=== PATIENT | male | born 1935 | race Caucasian/White ===

== ENCOUNTER 2016-06-23 10:07 | Inpatient (IN) | payer OTHER, MEDICAID ==
[~2016-06-23] VITALS: Ht 167.6 cm; Wt 60.8 kg
[~2016-06-23 10:07] MED LIST: ACET-2619 PO; CLOP75TA PO; FLUV100C PO; LORA10OD44 PO; LOVA10TA27 PO; MAGN400S60 PO; MEMA5TAB PO; MULT-1184 PO; PRIM50TA13 PO; ROB1 PO
[2016-06-23 10:17] VITALS: BP 126/74
--- NOTE | 2016-06-23 10:18 | NUR ---
PT PLACED TO BED 6 BY EMS
--- NOTE | 2016-06-23 10:20 | NUR ---
81/M jesus from [facility] for evaluation of abdominal pain accompanied with N/V/D since last night. Pt arrived to ED wrenching and vomiting. Emesis appears brown, liquid. Pt c/o pain to left side of abdomen, abdomen distended and firm on that side. Pt also c/o diarrhea throughout the night. Patient is AOX4, peruvian speaking. Pt appears very restless and moaning. Pt assisted into a gown, placed on surveillance monitor, pulse oximetry and blood pressure monitoring. VSS.
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
[2016-06-23] MEDS ORDERED: CALC-1214 PO (10:41)
[2016-06-23] MEDS ORDERED: MAGN400S60 PO (10:41)
[2016-06-23] MEDS ORDERED: CRAN450C PO (10:41)
[2016-06-23] MEDS ORDERED: DOCU100C5 PO (10:41)
[2016-06-23] MEDS ORDERED: MORPHINE SULFATE 4 MG/ML SYR IVP ONE (11:00)
[2016-06-23] MEDS ORDERED: NACL 0.9% 1,000 ML IV ONE ×3 (11:00→14:55)
[2016-06-23] MEDS ORDERED: ONDANSETRON 4 MG/2 ML VIAL IVP ONE ×2 (11:00→11:40)
--- NOTE | 2016-06-23 11:01 | NUR ---
Pt taken to restroom via w/c. Pt cleaned and placed a new brief. Daughter accompanied. Pt was transferred back to bed 6 via w/c. Pt tolerated well.
[2016-06-23 11:16] LABS: BASOPHILS % (AUTO) 0.4 % (0.0-2.0); EOSINOPHILS # (AUTO) 0.1 K/uL (0-0.4); EOSINOPHILS % (AUTO) 1.4 % (0.0-4.0); HEMATOCRIT 39.4 % (36-52); HEMOGLOBIN 13.1 g/dL (12.0-18.0); LYMPHOCYTES # (AUTO) 0.3 K/uL (2.0-11.5); LYMPHOCYTES % (AUTO) 3.6 % (20.5-51.1); MEAN CORPUSCULAR HEMOGLOBIN 31 pg (27-31); MEAN CORPUSCULAR HGB CONC 33 g/dL (33-37); MEAN CORPUSCULAR VOLUME 93 fL (80-94); MONOCYTES # (AUTO) 0.7 K/uL (0.8-1.0); MONOCYTES % (AUTO) 7.6 % (1.7-9.3); NEUTROPHILS # (AUTO) 8.3 K/uL (1.8-7.7); PLATELET COUNT (AUTO) 410 K/uL (140-450); RED BLOOD CELL COUNT(AUTO) 4.22 MIL/uL (4.20-6.10); RED CELL DISTRIBUTION WIDTH 12.8 % (11.6-13.7)
[2016-06-23 11:21] LABS: ANION GAP 10.1 (8-16); CALCIUM 8.6 mg/dL (8.5-10.1); CARBON DIOXIDE 29.3 mmol/L (21-32); CHLORIDE 106 mmol/L (98-107); CREATININE 1.2 mg/dL (0.6-1.3); GLUCOSE 122 mg/dL (74-106); POTASSIUM 4.4 mmol/L (3.5-5.1); SODIUM SERUM 141 mmol/L (136-145); UREA NITROGEN, BLOOD 31 mg/dL (7-18)
[2016-06-23 11:27] LABS: ALANINE AMINOTRANSFERASE 48 U/L (12-78); ALBUMIN 3.5 g/dL (3.4-5.0); ALKALINE PHOSPHATASE 123 U/L (46-116); AMYLASE 121 U/L (25-115); ASPARTATE AMINOTRANSFERASE 45 U/L (15-37); LIPASE 104 U/L (73-393); TOTAL BILIRUBIN 0.4 mg/dL (0.0-1.0); TOTAL PROTEIN, SERUM 7.2 g/dL (6.4-8.2); WHITE BLOOD COUNT (AUTO) 9.4 K/uL (4.8-10.8)
--- NOTE | 2016-06-23 11:52 | NUR ---
Daughter explains the restlessness and grunting patient has is normal for him.
--- NOTE | 2016-06-23 12:06 | NUR ---
Patient appears to be resting comfortably in bed. Vital Signs within normal limits. Respirations even and unlabored.
--- NOTE | 2016-06-23 12:38 | NUR ---
Patient provided with a warm blanket. Pt placed in position of comfort. VSS.
--- NOTE | 2016-06-23 13:23 | NUR ---
Patient returned from CT via [facility].
--- NOTE | 2016-06-23 13:33 | NUR ---
Dr. Fernández made aware of patient having nausea and vomiting after returning from CT.
[2016-06-23] MEDS ORDERED: METOCLOPRAMIDE 10 MG/2 ML INJ VIAL IVP ONE (13:35)
[2016-06-23] MEDS ORDERED: metroNIDAZOLE 500 MG/NS PREMIX 100 ML IV ONE (14:10)
[2016-06-23] MEDS ORDERED: cefTRIAXone 1,000 MG VIAL ONE (14:22)
--- NOTE | 2016-06-23 15:18 | NUR ---
# 16 FR Sotelo catheter with 10 ml utilizing sterile technique. Immediate return of 300 ml of clear yellow urine noted. Bedside drainage bag placed below level of bladder. Urine sample collected and sent to lab. Pt tolerated procedure well.
[2016-06-23 15:22] LABS: APPEARANCE,URINE CLEAR (CLEAR); BILIRUBIN,URINE NEGATIVE (NEGATIVE); BLOOD, URINE 2+ (NEGATIVE); COLOR,URINE YELLOW (YELLOW); LEUKOCYTE ESTERASE ,URINE NEGATIVE (NEGATIVE); NITRITE, URINE NEGATIVE (NEGATIVE); PROTEIN,URINE TRACE (NEGATIVE); UGLUCOSE NEGATIVE (NEGATIVE); UROBILINOGEN,URINE 0.2 EU/dL (0.2 - 1)
[2016-06-23 15:47] LABS: RBC,URINE 11-20 (MOD) /HPF (0-5)
[2016-06-23 15:48] LABS: BACTERIA,URINE RARE /HPF (None Seen); SQUAMOUS EPITHELIAL CELL,UR None Seen /LPF (0-3 (FEW)); WBC,URINE 0-5 (RARE) /HPF (0-5)
--- NOTE | 2016-06-23 15:53 | NUR ---
Patient will be admitted to care of Dr. Guevara. Admited to M/S. Will go to room 106-B. Belongings list completed. Report to Mikal GREEN.
--- NOTE | 2016-06-23 16:15 | NUR ---
ADMITTED FROM ER VIA GURNEY, ACCOMPANIED BY PT. DAUGHTER -HUMPHREY. AWAKE, ALERT, AND ORIENTED X3. SPEECH CLEAR. NO C/O PAIN. NO SOB, NOTED. SKIN DISCOLORATION RIGHT FOREARM, NOTED. KEEP COMFORTABLE ON BED. ADMISSION ASSESSMENT DONE WITH ASSISTANCE FROM PT. DAUGHTER -HUMPHREY. EXPLAINED TO PT. AND PT. DAUGHTER -HUMPHREY ABOUT DIAGNOSIS, PLAN OF CARE, PAIN MANAGEMENT TEACHING, USE OF CALL LIGHT/BED/TV/BATHROOM. VERBALIZED UNDERSTANDING. FALL PRECAUTION APPLIED. CALL LIGHT WITHIN REACH.
[2016-06-23 16:30] VITALS: BP 112/59
--- NOTE | 2016-06-23 17:02 | NUR ---
PAGED BRIANNE MOSQUEDA FOR ADDITIONAL ADMISSION ORDERS. LEFT CALL BACK NUMBER.
--- NOTE | 2016-06-23 17:09 | NUR ---
Patient's Plan of Care was discussed and reviewed with TELECOMMUNICATIONS MANAGER: LIAM BLANCO
--- NOTE | 2016-06-23 17:42 | NUR ---
DR. PATEL BRIANNE CALLED BACK, ASKED FOR ADDITIONAL ADMISSION ORDERS. GOT T.O. READ BACK AND VERIFIED.
[2016-06-23] MEDS: DEXT 5% / NACL 0.45% 1,000 ML IV SCH (18:10)
[2016-06-23] MEDS ORDERED: ACETAMINOPHEN 325 MG TAB PO SCH (18:55)
[2016-06-23] MEDS ORDERED: MAGNESIUM HYDROXIDE 2400 MG/30 ML UDC PO PRN (18:55)
[2016-06-23] MEDS ORDERED: HYDROcodone/APAP 5/325 MG 1 TAB TAB PO PRN (19:00)
[2016-06-23] MEDS ORDERED: ONDANSETRON 4 MG/2 ML VIAL IVP PRN (19:00)
[2016-06-23] MEDS ORDERED: ACETAMINOPHEN 325 MG TAB PO PRN (19:00)
--- NOTE | 2016-06-23 19:10 | NUR ---
RECEIVED REPORT FROM NORMA WHEELER AT BEDSIDE. PT AAOX3. CONFUSED AT TIMES. PT IS MED SURGE. PT IN BEDREST. PT HAS IV TO LEFT AC G 20; ASYMPTOMATIC, PATENT AND INTACT INFUSING FLUIDS WELL. PT HAS A BOWER CATHETER IN PLACE. PT HAS A BRUISE ON RIGHT FOREARM. EXPLAINED PLAN OF CARE TO PT AND ORIENTED HIM TO ROOM AND SURROUNDINGS. REINFORCEMENT NEEDED. SAFETY MEASURES IN PLACE, BED ALARM ON. WILL CONTINUE TO MONITOR PT.
--- NOTE | 2016-06-23 19:55 | NUR ---
THERE IS AN ORDER TO KEEP PT NPO, BUT THERE ARE SCHEDULED PO MEDICATIONS FOR PT. CALLED DR. AMANDA DECKER. TO CLARIFY IF PT CAN TAKE PO MEDICATIONS, DR PATEL STATED THAT IT IS OKAY TO GIVE PO MEDS. WILL FOLLOW UP ON ORDERES.
[2016-06-23] MEDS: CALCIUM CARB/VIT-D 500 MG/200 IU 1 TAB PO SCH (20:57)
[2016-06-23] MEDS: PRIMIDONE 50 MG TAB PO SCH (20:57)
[2016-06-23] MEDS: GLYCOPYRROLATE 1 MG TAB PO SCH (20:57)
[2016-06-23] MEDS: metroNIDAZOLE 500 MG/NS PREMIX 100 ML IV SCH (20:58)
--- NOTE | 2016-06-23 21:08 | NUR ---
PT TOLERATED 2100 MEDS WELL. PT CLEANED AND TURNED. BED ALARM ON, WILL CONTINUE TO MONITOR PT.
--- NOTE | 2016-06-23 23:40 | NUR ---
PT TURNED WITH HELP OF COMMERCIAL BAKING TEACHER. SCDS ON. NO SIGNS OF DISTRESS OR DISCOMFORT NOTED, WILL CONTINUE TO MONITOR PT.
[2016-06-24] VITALS: BP 132/75
--- NOTE | 2016-06-24 01:40 | NUR ---
PT TURNED/REPOSITIONED, CSDS ON. NO SIGNS OF DISTRESS/DISCOMFORT NOTED. BED ALARM ON, WILL CONTINUE TO MONITOR PT.
[2016-06-24] MEDS: DEXT 5% / NACL 0.45% 1,000 ML IV SCH ×3 (03:45→23:45)
--- NOTE | 2016-06-24 04:29 | NUR ---
PT SLEEPING AT THIS TIME, WOKE HIM UP TO REPOSITIONED/TURN. PT COMFORTABLY IN BED, WILL CONTINUE TO MONITOR PT.
[2016-06-24] MEDS: metroNIDAZOLE 500 MG/NS PREMIX 100 ML IV SCH ×3 (04:38→20:22)
--- NOTE | 2016-06-24 06:33 | NUR ---
PT SLEEPING, NO SIGNS OF DISTRESS NOTED. WILL CONTINUE TO MONITOR PT. PT HAS BEEN TURNED/REPOSITIONED THROUGH OUT THE SHIFT. WILL CONTINUE TO MONITOR. Addendum: 06/24/16 at 0634 by Nessa Shirley RN PT REPOSITIONED Q2H.
[2016-06-24 06:43] LABS: ANION GAP 8.8 (8-16); CALCIUM 7.4 mg/dL (8.5-10.1); CARBON DIOXIDE 24.9 mmol/L (21-32); CHLORIDE 110 mmol/L (98-107); GLUCOSE 85 mg/dL (74-106); POTASSIUM 3.7 mmol/L (3.5-5.1); SODIUM SERUM 140 mmol/L (136-145); UREA NITROGEN, BLOOD 19 mg/dL (7-18)
--- NOTE | 2016-06-24 07:30 | NUR ---
RECEIVED ON BED AAOX3, WITH PERIODS OF CONFUSION. NO SOB NOTED. NO C/O PAIN AT THIS TIME. IV TO LEFT AC PATENT AND INTACT. CHEST CLEAR. ABDOMEN SOFT, BOWEL SOUNDS PRESENT. WITH BOWER DRAINING CLEAR YELLOW URINE IN MODERATE AMOUNTS. GENERALIZED WEAKNESS NOTED. SCD'S IN PACE. WILL HELP REPOSITION PT EVERY 2 HRS. NPO MAINTAINED. INSTRUCTED PT TO CALL FOR ASSISTANCE, CALL LIGHT WITHIN REACH, PT VERBALIZED PARTIAL UNDERSTANDING.
[2016-06-24 07:54] LABS: HEMATOCRIT 31.7 % (36-52); HEMOGLOBIN 10.6 g/dL (12.0-18.0); MEAN CORPUSCULAR VOLUME 96 fL (80-94); RED BLOOD CELL COUNT(AUTO) 3.32 MIL/uL (4.20-6.10); WHITE BLOOD COUNT (AUTO) 5.7 K/uL (4.8-10.8)
[2016-06-24 07:55] LABS: MEAN CORPUSCULAR HEMOGLOBIN 32 pg (27-31); MEAN CORPUSCULAR HGB CONC 34 g/dL (33-37); PLATELET COUNT (AUTO) 272 K/uL (140-450); RED CELL DISTRIBUTION WIDTH 12.9 % (11.6-13.7)
--- NOTE | 2016-06-24 07:56 | NUR ---
ENDORSED PT IN STABLE CONDITION TO NORMA Norman FOR CONTINUITY OF CARE.
[2016-06-24 08:00] VITALS: BP 96/60
--- NOTE | 2016-06-24 08:13 | NUR ---
PATIENT HAS BEEN SCREENED AND CATEGORIZED MODERATE NUTRITION RISK. PATIENT WILL BE SEEN WITHIN 3-5 DAYS OF ADMISSION. 06/26/16-06/28/[address]
[2016-06-24] MEDS: CLOPIDOGREL 75 MG TAB PO SCH (09:00)
[2016-06-24] MEDS: MULTIVITAMIN/MINERALS 1 TAB PO SCH (09:00)
[2016-06-24] MEDS: GLYCOPYRROLATE 1 MG TAB PO SCH ×2 (09:00→20:30)
[2016-06-24] MEDS ORDERED: NON-FORMULARY ITEM (Cranberry Fruit Concentrate (Cranberry) 450 MG) PO SCH (09:00)
[2016-06-24] MEDS: DOCUSATE SODIUM 100 MG GELCAP PO SCH (09:00)
[2016-06-24] MEDS: MEMANTINE 10 MG TAB PO SCH (09:00)
--- NOTE | 2016-06-24 10:00 | NUR ---
PT RESTING. NO SOB NOTED. NO SIGNS OF PAIN. REPOSITIONED PT.
[2016-06-24 10:40] LABS: BASOPHILS % (AUTO) 0.5 % (0.0-2.0); EOSINOPHILS % (AUTO) 1.4 % (0.0-4.0); LYMPHOCYTES % (AUTO) 18.7 % (20.5-51.1); MONOCYTES % (AUTO) 12.9 % (1.7-9.3); NEUTROPHILS # (AUTO) 3.8 K/uL (1.8-7.7); NEUTROPHILS % (AUTO) 66.5 % (42.2-75.2)
[2016-06-24 10:41] LABS: EOSINOPHILS # (AUTO) 0.1 K/uL (0-0.4); LYMPHOCYTES # (AUTO) 1.1 K/uL (2.0-11.5); MONOCYTES # (AUTO) 0.7 K/uL (0.8-1.0)
--- NOTE | 2016-06-24 15:00 | NUR ---
PT RESTING. NO SOB NOTED. NO COMPLAINTS MADE. DAUGHTER AT THE BEDSIDE.
[2016-06-24 16:00] VITALS: BP 113/60
--- NOTE | 2016-06-24 18:00 | NUR ---
PT AWAKE. NO COMPLAINTS MADE. NPO MAINTAINED. PT'S DAUGHTER LEFT HER PHONE NUMBER FOR DR. AMANDA DECKER TO GIVE HER A CALL REGARDING PT'S CONDITION.
--- NOTE | 2016-06-24 19:05 | NUR ---
RECEIVED REPORT FROM NORMA Norman AT BEDSIDE. PT AAOX3. CONFUSED AT TIMES. PT IS MED SURGE. PT IN BEDREST. PT HAS IV TO LEFT AC G 20; ASYMPTOMATIC, PATENT AND INTACT INFUSING FLUIDS WELL. PT HAS A BOWER CATHETER IN PLACE. PT HAS A BRUISE ON RIGHT FOREARM. PT STABLE AT THIS TIME, NO SIGNS OF DISTRESS/DISCOMFORT. EXPLAINED PLAN OF CARE TO PT AND ORIENTED HIM TO ROOM AND SURROUNDINGS. REINFORCEMENT NEEDED. SAFETY MEASURES IN PLACE, BED ALARM ON. WILL CONTINUE TO MONITOR PT.
--- NOTE | 2016-06-24 19:14 | NUR ---
PAGED BRIANNE MOSQUEDA TO KNOW WHEN HE IS COMING TO SEE PT TODAY. AWAITING FOR CALL BACK. WILL ENDORSE TO NEXT SHIFT NURSE FOR FOR CONTINUITY OF CARE.
--- NOTE | 2016-06-24 20:28 | NUR ---
2100 ANTIBIOTIC GIVEN, HELD PO MEDS DUE TO PT BEEN NPO. WILL CONTINUE TO MONITOR PT.
[2016-06-24] MEDS: CALCIUM CARB/VIT-D 500 MG/200 IU 1 TAB PO SCH (20:29)
[2016-06-24] MEDS: PRIMIDONE 50 MG TAB PO SCH (20:29)
--- NOTE | 2016-06-24 21:18 | NUR ---
DR. PATEL IN TO SEE PT, WILL CONTINUE TO MONITOR PT.
--- NOTE | 2016-06-24 21:56 | NUR ---
DR. GOTTLIEB IN TO SEE PT, WILL CONTINUE TO MONITOR PT.
[2016-06-24] MEDS: LEVOFLOXACIN 500 MG/D5W PREMIX 100 ML IV SCH (21:57)
--- NOTE | 2016-06-24 22:22 | NUR ---
PT TURNED/REPOSITIONED WITH HELP OF TANYA. PT KEEPS CALLING THE CALL LIGHT AND SAYS THAT HE IS WET AND BLEEDING. PT IS DRY AND CLEAN. TANYA AT BEDSIDE. CALL LIGHT WITHIN REACH.
--- NOTE | 2016-06-24 23:31 | NUR ---
PT HAD A BOWEL MOVEMENT. PT CLEANED AND REPOSITIONED/TURNED. PT RESTING COMFORTABLE IN BED NOW. WILL CONTINUE TO MONITOR PT.
[2016-06-25] VITALS: BP 115/72
[2016-06-25] MEDS: DEXT 5% / NACL 0.45% 1,000 ML IV SCH ×2 (04:24→17:00)
--- NOTE | 2016-06-25 04:35 | NUR ---
PT TURNED/REPOSITIONED, BOWER CATHETER EMPTIED. PT STABLE, WILL CONTINUE TO MONITOR PT.
--- NOTE | 2016-06-25 06:10 | NUR ---
PT HAS BEEN TURNED/REPOSITIONED Q2H THROUGHOUT THE SHIFT. PT TOLERATED IT WELL, WILL CONTINUE TO MONITOR PT.
[2016-06-25 06:40] LABS: BASOPHILS % (AUTO) 0.9 % (0.0-2.0); EOSINOPHILS # (AUTO) 0.1 K/uL (0-0.4); EOSINOPHILS % (AUTO) 2.3 % (0.0-4.0); HEMATOCRIT 34.2 % (36-52); HEMOGLOBIN 11.3 g/dL (12.0-18.0); LYMPHOCYTES # (AUTO) 0.7 K/uL (2.0-11.5); LYMPHOCYTES % (AUTO) 13.9 % (20.5-51.1); MEAN CORPUSCULAR HEMOGLOBIN 31 pg (27-31); MEAN CORPUSCULAR HGB CONC 33 g/dL (33-37); MEAN CORPUSCULAR VOLUME 93 fL (80-94); MONOCYTES # (AUTO) 0.7 K/uL (0.8-1.0); MONOCYTES % (AUTO) 13.1 % (1.7-9.3); NEUTROPHILS # (AUTO) 3.6 K/uL (1.8-7.7); NEUTROPHILS % (AUTO) 69.8 % (42.2-75.2); PLATELET COUNT (AUTO) 316 K/uL (140-450); RED BLOOD CELL COUNT(AUTO) 3.66 MIL/uL (4.20-6.10); RED CELL DISTRIBUTION WIDTH 12.8 % (11.6-13.7); WHITE BLOOD COUNT (AUTO) 5.1 K/uL (4.8-10.8)
[2016-06-25 06:55] LABS: ANION GAP 8.3 (8-16); CALCIUM 7.5 mg/dL (8.5-10.1); CARBON DIOXIDE 27.2 mmol/L (21-32); CHLORIDE 109 mmol/L (98-107); CREATININE 0.9 mg/dL (0.6-1.3); GLUCOSE 107 mg/dL (74-106); POTASSIUM 3.5 mmol/L (3.5-5.1); SODIUM SERUM 141 mmol/L (136-145); UREA NITROGEN, BLOOD 12 mg/dL (7-18)
--- NOTE | 2016-06-25 07:39 | NUR ---
ENDORSED PT IN STABLE CONDITION ROSA ANGEL FOR CONTINUITY OF CARE.
--- NOTE | 2016-06-25 07:41 | NUR ---
RECEIVED REPORT FROM NIGHT RN. PT LAYING LEFT LATERAL IN BED. AAOX3. NO S/S OF ACUTE DISTRESS. PT DENIES PAIN. IV SITE PATENT AND INTACT. BOWER CATHETER PATENT. BRUISE TO RIGHT FOREARM NOTED. SCD'S IN PLACE. CALL LIGHT WITHIN REACH. SAFETY MEASURES ENSURED. WILL CONTINUE TO MONITOR.
[2016-06-25 07:54] VITALS: BP 114/68
--- NOTE | 2016-06-25 07:55 | NUR ---
PT REFUSED BREAKFAST TRAY BECAUSE "I WILL THROW UP" EXPLAINED THE IMPORTANCE OF TRYING TO ADVANCE DIET AND OFFERED EACH ITEM TO TRY. PT STILL REFUSED.
[2016-06-25] MEDS: DOCUSATE SODIUM 100 MG GELCAP PO SCH (09:00)
[2016-06-25] MEDS: GLYCOPYRROLATE 1 MG TAB PO SCH ×2 (09:00→20:36)
[2016-06-25] MEDS: MULTIVITAMIN/MINERALS 1 TAB PO SCH (09:00)
[2016-06-25] MEDS: MEMANTINE 10 MG TAB PO SCH (09:00)
[2016-06-25] MEDS: CLOPIDOGREL 75 MG TAB PO SCH (09:00)
--- NOTE | 2016-06-25 09:22 | NUR ---
PT HAS DIFFICULTY SWALLOWING APPLE SAUCE. AM MEDS HELD UNTIL SWALLOW EVALUATION.
--- NOTE | 2016-06-25 10:36 | NUR ---
PT RESTING IN BED. NO S/S OF ACUTE DISTRESS. PT DENIES PAIN. CALL LIGHT WITHIN REACH. SAFETY MEASURES ENSURED. WILL CONTINUE TO MONITOR.
--- NOTE | 2016-06-25 12:01 | NUR ---
PT RESTING IN BED. NO S/S OF ACUTE DISTRESS. PT DENIES PAIN. PT REPOSITIONED TO RIGHT LATERAL. CALL LIGHT WITHIN REACH. WILL CONTINUE TO MONITOR.
--- NOTE | 2016-06-25 15:46 | NUR ---
PT RESTING IN BED. NO S/S OF ACUTE DISTRESS. PT DENIES PAIN. CALL LIGHT WITHIN REACH. WILL CONTINUE TO MONITOR.
[2016-06-25 16:00] VITALS: BP 128/60
--- NOTE | 2016-06-25 16:24 | NUR ---
PT RESTING IN BED. PT APPEARS ANXIOUS. STATES HE NEEDS TO BE CLEANED. NO BM PRESENT. BOWER PATENT. PT CLEANED AND REPOSITIONED. PT REPEATEDLY STATES HE NEEDS TO BE CLEAN. EXPLAINED TO PT THAT HE DIDN'T HAVE A BM, BUT PT INSISTS THAT HE DID. PT REFUSED ATIVAN.
--- NOTE | 2016-06-25 16:30 | NUR ---
PT RESTING IN BED. NO S/S OF ACUTE DISTRESS. PT DENIES PAIN. PT SEEMS LESS ANXIOUS. PT STATES HE "WILL BE FINE". CALL LIGHT WITHIN REACH. WILL CONTINUE TO MONITOR.
--- NOTE | 2016-06-25 16:40 | NUR ---
* ST NOTE * Bedside Dysphagia and Oral Mechanism exams completed at bedside with caregiver/MEDIA RELATIONS COORDINATOR present. See evaluation report for further details. Pt tolerating 6/6 alternating PO trials of puree apple sauce 3-5 CCs at a time via a teaspoon w/out s/s of aspiration. Pt reporting minimal difficulty swallowing currently, however exhibiting laryngeal excursion WFL as well as laryngeal elevation WFL. Pt also tolerating 6/6 alternating PO trials of nectar-thick apple juice 3-5 CCs at a time via a teaspoon w/out s/s of aspiration as well, exhibiting clear voicing WFL w/out wet or gargly vocal quality. Pt's voicing however presenting with decreased vocal intensity at this time. Pt generally appearing anxious and exhibiting tremors at baseline, of which caregiver/MEDIA RELATIONS COORDINATOR and caregiver/charge nurse are aware. Pt also constantly wiping his mouth and attempting to spit out sputum after every PO trial, with clinician observing no sputum or secretions being spit out between PO administrations. It is thus recommended pt's PO diet consistency be modified to puree textures with nectar-thick liquids (NTL) with close supervision and assistance during PO intake to assure aspiration precautions are in place. Additionally, pt exhibits history of refusing PO intake at this time as per Nursing's reports. Pt may thus benefit from an RD evaluation to assess alternative means of nutrition if pt continues to refuse PO intake with caregivers/nursing. Pt, caregiver/MEDIA RELATIONS COORDINATOR and caregiver/charge nurse education completed regarding results of evaluation; benefits of abiding by recommended PO diet consistency and aspiration precautions; and prognosis for improvement; with pt, caregiver/MEDIA RELATIONS COORDINATOR and caregiver/charge nurse all agreeable with and verbalizing understanding of clinician's recommendations. Recommend: - PO diet consistency of Puree textures with [place]-thick liquids for all meals - Close supervision by caregivers/staff during PO intake to assure aspiration precautions are in place - Pt requires assistance with feeding - RD referral to consider alternative means of nutrition if pt continues refusing PO intake No further ST follow up recommended at this time. G8996 CK G8997 CJ G8998 CJ NOMS Level 3 Time In/Out: 15:55 - 16:25
[2016-06-25] MEDS: LORazepam 2 MG/ML VIAL IVP PRN ×2 (17:17→21:21)
[2016-06-25] MEDS ORDERED: LEVO750T2 PO (18:32)
--- NOTE | 2016-06-25 19:04 | NUR ---
DR. PATEL IN TO SEE PT. BOWER CATHETER DISCONTINUED. NO S/S OF ACUTE DISTRESS. PT DENIES PAIN. CALL LIGHT WITHIN REACH. DAUGHTER AT BEDSIDE. DAUGHTER MADE AWARE OF AM DISCHARGE. WILL CONTINUE TO MONITOR.
--- NOTE | 2016-06-25 19:10 | NUR ---
ENDORSED PLAN OF CARE TO NIGHT RN. PT REMAINS IN STABLE CONDITION.
--- NOTE | 2016-06-25 19:11 | NUR ---
RECD. RESTING IN BED, AWAKE, A/OX3. NO SOB NOTED BUT WITH LOTS OF SECRETIONS COMING OUT OF THE MOUTH, SUCTIONING DONE NEEDED. HOB ELEVATED 35 DEGREES. 02 SAT - 96% ON ROOM AIR. IV OF D51/2 NS AT 100 ML/HR INFUSING, LEFT AC G 20. BRUISE NOTED ON RIGHT ARM. ON BILATERAL LEG SEQUENTIALS. PLAN OF CARE FOR THE SHIFT DISCUSSED WITH PATIENT AND FAMILY. VERBALIZED UNDERSTANDING. SAFETY MEASURES ENFORCED. DENIES PAIN 0/10.
--- NOTE | 2016-06-25 19:30 | NUR ---
SUCTIONING DONE, MADE COMFORTABLE IN BED.
--- NOTE | 2016-06-25 20:00 | NUR ---
STILL WITH LOTS OF SECRETIONS, SUCTIONING DONE. REPOSITIONED IN BED.
[2016-06-25] MEDS: PRIMIDONE 50 MG TAB PO SCH (20:36)
[2016-06-25] MEDS: CALCIUM CARB/VIT-D 500 MG/200 IU 1 TAB PO SCH (20:36)
--- NOTE | 2016-06-25 20:36 | NUR ---
DUE PO MEDICATIONS CRUSHED AND GIVEN WITH APPLE SAUCE AND THICKENED LIQUIDS. TOLERATED WELL.
--- NOTE | 2016-06-25 21:00 | NUR ---
Patient's Plan of Care was discussed and reviewed with PROFESSIONAL APPLICATION DESIGNER: MARLEY GARCIA
[2016-06-25] MEDS: LEVOFLOXACIN 500 MG/D5W PREMIX 100 ML IV SCH (21:20)
--- NOTE | 2016-06-25 21:20 | NUR ---
SUCTIONED MODERATE AMOUNT OF SECRETIONS IN THE MOUTH USING YANKAUER.
--- NOTE | 2016-06-25 22:00 | NUR ---
CONFUSED, REORIENTED TO HOSPITAL SETTING.
[2016-06-26] VITALS: BP 139/70
--- NOTE | 2016-06-26 | NUR ---
DECREASED SECRETIONS NOTED. MADE COMFORTABLE IN BED.
--- NOTE | 2016-06-26 01:00 | NUR ---
STILL AWAKE, ENCOURAGED TO GO TO SLEEP, MADE AWARE OF THE TIME.
--- NOTE | 2016-06-26 02:00 | NUR ---
INCONTINENT, CLEANSED BY AQUATICS ASSISTANT DEPARTMENT HEAD AND REPOSITIONED IN BED.
--- NOTE | 2016-06-26 03:00 | NUR ---
STILL AWAKE, ADVISED TO GO TO SLEEP.
[2016-06-26] MEDS: DEXT 5% / NACL 0.45% 1,000 ML IV SCH ×2 (04:26→05:45)
--- NOTE | 2016-06-26 05:00 | NUR ---
WENT TO SLEEP, NO COUGHING OR SECRETIONS NOTED.
[2016-06-26 05:52] LABS: BASOPHILS % (AUTO) 0.6 % (0.0-2.0); EOSINOPHILS # (AUTO) 0.1 K/uL (0-0.4); EOSINOPHILS % (AUTO) 1.4 % (0.0-4.0); HEMATOCRIT 37.1 % (36-52); HEMOGLOBIN 12.8 g/dL (12.0-18.0); LYMPHOCYTES # (AUTO) 0.7 K/uL (2.0-11.5); LYMPHOCYTES % (AUTO) 10.8 % (20.5-51.1); MEAN CORPUSCULAR HEMOGLOBIN 32 pg (27-31); MEAN CORPUSCULAR HGB CONC 35 g/dL (33-37); MEAN CORPUSCULAR VOLUME 93 fL (80-94); MONOCYTES # (AUTO) 0.7 K/uL (0.8-1.0); MONOCYTES % (AUTO) 11.2 % (1.7-9.3); NEUTROPHILS # (AUTO) 4.7 K/uL (1.8-7.7); PLATELET COUNT (AUTO) 355 K/uL (140-450); RED CELL DISTRIBUTION WIDTH 12.8 % (11.6-13.7); WHITE BLOOD COUNT (AUTO) 6.2 K/uL (4.8-10.8)
--- NOTE | 2016-06-26 06:00 | NUR ---
IV INFILTRATED, NEW IV LINE INSERTED BY MYRIAM RN, LEFT FOREARM G 20.
--- NOTE | 2016-06-26 07:15 | NUR ---
CONDITION REMAIN STABLE. FOR DISCHARGE TODAY AFTER BREAKFAST. ENDORSED TO NORMA BERMUDEZ FOR CONTINUITY OF CARE.
--- NOTE | 2016-06-26 07:16 | NUR ---
RECEIVED PT FROM MARCO A ROACH AWAKE LYING ON BED, AAOX3 WITH PERIODS OF CONFUSION, WITH IV ON LEFT FOREARM 20G INFUSING FLUIDS WELL. NO S/S OF RESPIRATORY DISTRESS NOTED. WITH BRUISE ON RIGHT FOREARM INTACT. WITH SCDS ON. DISCUSSED PLAN OF CARE, PT VERBALIZED UNDERSTANDING BUT REINFORCEMENT NEEDED. CALL LIGHT WITHIN REACH, WILL CONTINUE TO MONITOR.
[2016-06-26 07:20] LABS: ANION GAP 9.2 (8-16); CALCIUM 8.2 mg/dL (8.5-10.1); CARBON DIOXIDE 27.6 mmol/L (21-32); CHLORIDE 106 mmol/L (98-107); GLUCOSE 99 mg/dL (74-106); POTASSIUM 3.8 mmol/L (3.5-5.1); SODIUM SERUM 139 mmol/L (136-145); UREA NITROGEN, BLOOD 12 mg/dL (7-18)
[2016-06-26 08:00] VITALS: BP 133/70
[2016-06-26] MEDS: MULTIVITAMIN/MINERALS 1 TAB PO SCH (08:28)
[2016-06-26] MEDS: DOCUSATE SODIUM 100 MG GELCAP PO SCH (08:28)
[2016-06-26] MEDS: MEMANTINE 10 MG TAB PO SCH (08:28)
[2016-06-26] MEDS: GLYCOPYRROLATE 1 MG TAB PO SCH (08:28)
[2016-06-26] MEDS: CLOPIDOGREL 75 MG TAB PO SCH (08:29)
--- NOTE | 2016-06-26 08:32 | NUR ---
DUE MEDS GIVEN, PT TOLERATED WELL. ALL NEEDS MET AT THIS TIME, WILL CONTINUE TO MONITOR.
--- NOTE | 2016-06-26 09:50 | NUR ---
PT AWAKE LYING ON BED WITH DAUGHTER AT BEDSIDE. ALL NEEDS MET AT THIS TIME, WILL CONTINUE TO MONITOR.
--- NOTE | 2016-06-26 10:35 | NUR ---
DISCHARGE INSTRUCTIONS AND PRESCRIPTION GIVEN AND EXPLAINED TO DAUGHTER WELL. ID WRISTBAND AND IV ACCESS REMOVED, CATHETER TIP INTACT. DAUGHTER STATED SHE WILL TAKE HER FATHER TO [facility]. NO S/S OF DISTRESS, PT LEFT UNIT ON A WHEELCHAIR IN STABLE CONDITION ACCOMPANIED BY DAUGHTER AND SCHOOL LIBRARY MEDIA PROGRAM DIRECTOR.
--- NOTE | 2016-06-26 12:14 | NUR ---
REPORT GIVEN TO NORMA ALEXANDER OF [facility].
--- NOTE | 2016-06-26 12:25 | NUR ---
Social Service Note: Late entry for earlier this morning: [facility].
== END 2016-06-26 10:35 | DRG 391 ==
LOC: MED 10:07 → MTU 14:58
PROVIDERS: ADMIT Preventive Medicine Preventive Medicine/Occupational Environmental Medicine; ATTEND Preventive Medicine Preventive Medicine/Occupational Environmental Medicine
DX: K52.9 Noninfective gastroenteritis and colitis, unspecified (principal); J18.9 Pneumonia, unspecified organism; I69.351 Hemiplegia and hemiparesis following cerebral infarction affecting right dominant side; K29.70 Gastritis, unspecified, without bleeding; R73.9 Hyperglycemia, unspecified; N20.0 Calculus of kidney; G20 Parkinson's disease; E78.00 Pure hypercholesterolemia, unspecified; D64.9 Anemia, unspecified; R74.0 Nonspecific elevation of levels of transaminase and lactic acid dehydrogenase [LDH]; Z90.49 Acquired absence of other specified parts of digestive tract; Z79.899 Other long term (current) drug therapy
CPT/HCPCS: 36415; 51702; 71010; 80048; 80053; 81001; 82150; 82948; 83605; 83690; 84484; 85025; 85651; 86140; 87040; 87081; 92610; 96361; 96365; 96367; 96375; 96376; 99285; J0696; J1956; J2060; J2270; J2405; J2765; J3490; J7030; J7060; Q9967

== ENCOUNTER 2017-05-19 15:17 | Inpatient (IN) | payer OTHER, MEDICAID ==
[~2017-05-19] VITALS: Ht 152.4 cm; Wt 63.0 kg
[~2017-05-19 15:17] MED LIST changes: +CALC-1214 PO; +CRAN450C PO; +DOCU100C5 PO; -FLUV100C PO; +LEVO750T2 PO; -LORA10OD44 PO; -LOVA10TA27 PO
[2017-05-19 15:23] VITALS: BP 128/69
--- NOTE | 2017-05-19 15:27 | NUR ---
Patient to bed 3 by EMS at this time.
[2017-05-19] MEDS ORDERED: NACL 0.9% 1,000 ML IV ONE (15:55)
--- NOTE | 2017-05-19 16:04 | NUR ---
WENT TO CT SCAN ACCOMPANIED BY TECH
[2017-05-19] MEDS ORDERED: SIMV5TAB1 PO (16:08)
[2017-05-19] MEDS ORDERED: PRIM50TA24 PO (16:08)
[2017-05-19] MEDS ORDERED: FAMO-90 PO (16:08)
[2017-05-19] MEDS ORDERED: ACET-2619 PO (16:08)
[2017-05-19 16:23] LABS: BASOPHILS # (AUTO) 0.1 K/uL (0.00-0.22); BASOPHILS % (AUTO) 1.7 % (0.0-2.0); EOSINOPHILS # (AUTO) 0.1 K/uL (0-0.4); EOSINOPHILS % (AUTO) 0.9 % (0.0-4.0); HEMOGLOBIN 12.6 g/dL (12.0-18.0); LYMPHOCYTES # (AUTO) 1.2 K/uL (2.0-11.5); LYMPHOCYTES % (AUTO) 16.3 % (20.5-51.1); MEAN CORPUSCULAR HEMOGLOBIN 31 pg (27-31); MEAN CORPUSCULAR HGB CONC 33 g/dL (33-37); MEAN CORPUSCULAR VOLUME 94 fL (80-94); MONOCYTES # (AUTO) 0.9 K/uL (0.8-1.0); MONOCYTES % (AUTO) 12.8 % (1.7-9.3); NEUTROPHILS # (AUTO) 5.1 K/uL (1.8-7.7); NEUTROPHILS % (AUTO) 68.3 % (42.2-75.2); PLATELET COUNT (AUTO) 361 K/uL (140-450); RED BLOOD CELL COUNT(AUTO) 4.04 MIL/uL (4.20-6.10); RED CELL DISTRIBUTION WIDTH 13.3 % (11.6-13.7); WHITE BLOOD COUNT (AUTO) 7.4 K/uL (4.8-10.8)
[2017-05-19 16:32] LABS: ANION GAP 11.7 (8-16); CARBON DIOXIDE 26.4 mmol/L (21-32); CHLORIDE 108 mmol/L (98-107); CREATININE 1.1 mg/dL (0.7-1.3); GLUCOSE 108 mg/dL (74-106); POTASSIUM 4.1 mmol/L (3.5-5.1); SODIUM SERUM 142 mmol/L (136-145); UREA NITROGEN, BLOOD 28 mg/dL (7-18)
[2017-05-19 16:38] LABS: ALBUMIN 3.3 g/dL (3.4-5.0); ASPARTATE AMINOTRANSFERASE 32 U/L (15-37); TOTAL BILIRUBIN 0.5 mg/dL (0.0-1.0)
--- NOTE | 2017-05-19 16:39 | NUR ---
PATIENT BIBA W/ C/O LT ANTERIOR CP . PT SATTES CP IS AGGRAVATED BY COUGHING. SKIN IS PINK/WARM/DRY; AAOX4 WITH EVEN AND STEADY GAIT; PT DENIES ANY FEVER THIS TIME; PATIENT STATES PAIN OF 5/10 AT THIS TIME;PATIENT POSITIONED FOR COMFORT; HOB ELEVATED; BEDRAILS UP X2; BED DOWN. ALL MONITORS IN PLACED;ER MD MADE AWARE OF PT STATUS.
[2017-05-19 16:42] LABS: PROTHROMBIN TIME 11.6 secs (10.8-13.4)
--- NOTE | 2017-05-19 17:24 | NUR ---
PER DAUGHTER PT FELL 2-3 DAYS AGO;HEMATOMA NOTED ON LT ARM;PER DAUGHTER ERMD IS AWARE;
--- NOTE | 2017-05-19 17:42 | NUR ---
DR AGUILAR AT BEDSIDE.
[2017-05-19] MEDS ORDERED: LEVOFLOXACIN 500 MG/D5W PREMIX 100 ML IV ONE (17:55)
[2017-05-19 18:03] LABS: APPEARANCE,URINE CLEAR (CLEAR); BILIRUBIN,URINE NEGATIVE (NEGATIVE); BLOOD, URINE NEGATIVE (NEGATIVE); COLOR,URINE YELLOW (YELLOW); LEUKOCYTE ESTERASE ,URINE NEGATIVE (NEGATIVE); NITRITE, URINE NEGATIVE (NEGATIVE); PH,URINE 5.5 (5.0-9.0); UGLUCOSE NEGATIVE (NEGATIVE)
[2017-05-19] MEDS: NACL 0.9% 1,000 ML IV SCH ×2 (18:36→20:48)
[2017-05-19] MEDS ORDERED: ONDANSETRON 4 MG/2 ML VIAL IVP PRN (18:40)
[2017-05-19] MEDS ORDERED: ACETAMINOPHEN 325 MG TAB PO PRN (18:40)
[2017-05-19] MEDS ORDERED: HYDROcodone/APAP 7.5/325 MG 1 TAB PO PRN (18:40)
[2017-05-19 19:20] VITALS: BP 119/46
--- NOTE | 2017-05-19 19:20 | NUR ---
Admitted from ER TO TELEMETRY UNIT, with chief complaint of LEFT ABDOMINAL PAIN AND COUGH, SINCE YESTERDAY,81 y/o ,Male, Cooperative, A LITTLE ANXIOUS, A/OX4, RESPIRATION EVEN AND UNLABORED, LUNG SOUNDS DIMINISHED ON BILATERAL AUSCULTATION, 02 SAT - 98% ON ROOM AIR. ABDOMEN SOFT, NOT DISTENDED, DAUGHTER STATED PATIENT HAD TWO TIMES DIARRHEA BEFORE COMING TO HOSPITAL, WILL OBSERVE. HEAD TO TOE ASSESSMENT DONE WITH CHARGE NURSE AUSTEN, NOTED SOME BRUISES ON THE LEFT ARM, PER DAUGHTER WITH HISTORY OF FALL AT HOME THREE DAYS AGO, USES WALKER AT HOME, SKIN INTACT. PLAN OF CARE DISCUSSED WITH DAUGHTER AND PATIENT. VERBALIZED UNDERSTANDING. DENIES PAIN 0/10. SAFETY MEASURES ENFORCED, BED ON ALARM. oriented to call light, bed, phone,television, bathroom, smoking policy, visiting hours, procedures, ID bracelet on. Belongings list checked.
--- NOTE | 2017-05-19 19:32 | NUR ---
Patient will be admitted to care of DR WALLER. Admited to TELE. Will go to [id number]. Belongings list completed. Report to NORMA BOYCE.
[2017-05-19] MEDS ORDERED: guaiFENesin/CODEINE 100/10MG 5 ML UDC PO PRN (19:40)
[2017-05-19] MEDS ORDERED: ALBUTEROL SULFATE/IPRATROPIU 3 ML SOL IH PRN (19:40)
--- NOTE | 2017-05-19 19:45 | NUR ---
Patient's Plan of Care was discussed and reviewed with ACCESS DEVELOPER: MARLEY GARCIA
--- NOTE | 2017-05-19 20:00 | NUR ---
REFUSE TO EAT ANYTHING, AFRAID TO EAT DUE TO DIARRHEA.
[2017-05-19] MEDS ORDERED: TEMAZEPAM 15 MG CAP PO PRN (20:15)
[2017-05-19 20:19] LABS: CHOL/HDL RATIO 2.4 (1-4.5); FREE T4 (FREE THYROXINE) 0.9 ng/dL (0.76-1.46); PHOSPHORUS 2.5 mg/dL (2.5-4.9); THYROID STIMULATING HORMONE 1.3 uIU/mL (0.34-3.74)
[2017-05-19] MEDS: CALCIUM CARB/VIT-D 500 MG/200 IU 1 TAB PO SCH (20:50)
[2017-05-19] MEDS: DOCUSATE SODIUM 100 MG GELCAP PO SCH (20:50)
[2017-05-19] MEDS: SIMVASTATIN 10 MG TAB PO SCH (20:51)
[2017-05-19] MEDS: FAMOTIDINE 20 MG TAB PO SCH (20:51)
[2017-05-19] MEDS: GLYCOPYRROLATE 1 MG TAB PO SCH (20:51)
--- NOTE | 2017-05-19 23:00 | NUR ---
SLEEPING COMFORTABLY IN BED.
[2017-05-19] MEDS ORDERED: CLINDAMYCIN 600 MG/4 ML VIAL ONE (23:04)
[2017-05-19] MEDS: CLINDAMYCIN 600 MG in DEXTROSE 5% 50 ML IV SCH (23:09)
[2017-05-20] VITALS (7 sets, daily range): BP systolic 99–135; BP diastolic 50–72
--- NOTE | 2017-05-20 02:00 | NUR ---
REFUSED BILATERAL SEQUENTIALS TO BE PUT IN PLACED, STATED HE'S AMBULATING WITH A WALKER.
[2017-05-20] MEDS ORDERED: CLINDAMYCIN 600 MG/4 ML VIAL ONE (05:15)
[2017-05-20] MEDS: CLINDAMYCIN 600 MG in DEXTROSE 5% 50 ML IV SCH ×4 (05:18→23:16)
[2017-05-20] MEDS: NACL 0.9% 1,000 ML IV SCH ×2 (06:06→09:48)
--- NOTE | 2017-05-20 06:11 | NUR ---
ABLE TO SLEEP WELL. CONDITION REMAIN STABLE. WILL ENDORSED TO AM NURSE FOR CONTINUITY OF CARE.
[2017-05-20 07:13] LABS: BASOPHILS # (AUTO) 0.1 K/uL (0.00-0.22); BASOPHILS % (AUTO) 2.3 % (0.0-2.0); EOSINOPHILS # (AUTO) 0.1 K/uL (0-0.4); EOSINOPHILS % (AUTO) 1.8 % (0.0-4.0); HEMATOCRIT 34.6 % (36-52); HEMOGLOBIN 11.5 g/dL (12.0-18.0); LYMPHOCYTES # (AUTO) 1.3 K/uL (2.0-11.5); LYMPHOCYTES % (AUTO) 25.8 % (20.5-51.1); MEAN CORPUSCULAR HEMOGLOBIN 31 pg (27-31); MEAN CORPUSCULAR HGB CONC 33 g/dL (33-37); MEAN CORPUSCULAR VOLUME 94 fL (80-94); MONOCYTES # (AUTO) 0.6 K/uL (0.8-1.0); MONOCYTES % (AUTO) 11.8 % (1.7-9.3); NEUTROPHILS # (AUTO) 2.8 K/uL (1.8-7.7); NEUTROPHILS % (AUTO) 58.3 % (42.2-75.2); PLATELET COUNT (AUTO) 307 K/uL (140-450); RED BLOOD CELL COUNT(AUTO) 3.69 MIL/uL (4.20-6.10); RED CELL DISTRIBUTION WIDTH 13.1 % (11.6-13.7); WHITE BLOOD COUNT (AUTO) 4.9 K/uL (4.8-10.8)
[2017-05-20 07:24] LABS: ANION GAP 12.4 (8-16); CARBON DIOXIDE 25.6 mmol/L (21-32); CHLORIDE 110 mmol/L (98-107); GLUCOSE 97 mg/dL (74-106); SODIUM SERUM 144 mmol/L (136-145); UREA NITROGEN, BLOOD 18 mg/dL (7-18)
--- NOTE | 2017-05-20 07:25 | NUR ---
ASSUMED CONTINUITY OF CARE. NO SIGNS AND SYMPTOMS OF ACUTE DISTRESS NOTED. RE-ORIENTED TO EVENTS AND SURROUNDINGS. KEEP COMFORTABLE ON BED. EXPLAINED DIAGNOSIS, PLAN OF CARE, PAIN MANAGEMENT TEACHING, USE OF CALL LIGHT/BED/TV/BATHROOM. VERBALIZED UNDERSTANDING. FALL PRECAUTION APPLIED. CALL LIGHT WITHIN REACH.
--- NOTE | 2017-05-20 07:25 | NUR ---
ENDORSED TO MARCO A WHEELER FOR CONTINUITY OF CARE.
[2017-05-20 07:28] LABS: MAGNESIUM 1.9 mg/dL (1.8-2.4); PHOSPHORUS 2.4 mg/dL (2.5-4.9)
--- NOTE | 2017-05-20 08:00 | NUR ---
AWAKE AND ALERT NO SOB NOTED PATIENT WITH BREAKFAST TRAY AT THIS TIME REPULPING SUPERVISOR TO ATTEMPT HHN THERAPY AT A LATER TIME
--- NOTE | 2017-05-20 08:00 | NUR ---
Patient's Plan of Care was discussed and reviewed with OLIVE PACKER: SHAD BOWEN
[2017-05-20] MEDS: ALBUTEROL SULFATE/IPRATROPIU 3 ML SOL IH SCH ×3 (08:27→19:50)
[2017-05-20] MEDS: PRIMIDONE 50 MG TAB PO SCH (08:48)
[2017-05-20] MEDS: LACTOBACILLUS RHAMNOSUS GG 1 EACH CAP PO SCH (08:48)
[2017-05-20] MEDS: CYCLOBENZAPRINE 10 MG TAB PO SCH ×3 (08:49→17:02)
[2017-05-20] MEDS: MULTIVITAMIN/MINERALS 1 TAB PO SCH (08:49)
[2017-05-20] MEDS: DOCUSATE SODIUM 100 MG GELCAP PO SCH ×2 (08:49→21:00)
[2017-05-20] MEDS: GLYCOPYRROLATE 1 MG TAB PO SCH ×2 (08:49→21:00)
[2017-05-20] MEDS: MEMANTINE 10 MG TAB PO SCH (08:49)
[2017-05-20] MEDS: CLOPIDOGREL 75 MG TAB PO SCH (08:50)
[2017-05-20] MEDS: FAMOTIDINE 20 MG TAB PO SCH ×2 (08:50→21:00)
--- NOTE | 2017-05-20 08:55 | NUR ---
PATIENT HAS BEEN SCREENED AND CATEGORIZED MODERATE NUTRITION RISK. PATIENT WILL BE SEEN WITHIN 3-5 DAYS OF ADMISSION. 05/21/17-05/23/[address]
--- NOTE | 2017-05-20 11:10 | NUR ---
SLEEPING AT THIS TIME. NO SOB, NOTED. WILL MONITOR.
[2017-05-20] MEDS ORDERED: LOPERAMIDE 2 MG CAP PO PRN (14:30)
--- NOTE | 2017-05-20 16:00 | NUR ---
VITALS SIGNS STABLE. NO C/O PAIN. WILL MONITOR.
--- NOTE | 2017-05-20 19:12 | NUR ---
BEDSIDE REPORT GIVEN TO KRISTEN TORRES. IVF INFUSING WELL. IN STABLE CONDITION. FAMILY MEMBERS ON BEDSIDE.
--- NOTE | 2017-05-20 19:30 | NUR ---
RECEIVED REPORT FROM DAY SHIFT NURSE, PATIENT RESTING IN BED, AWAKE ALERT, NO S/S OF DISTRESS NOTED, RESPIRATION EVEN AND UNLABORED, IV PATENT AND INTACT, INFUSING NS AT 75ML/HR, PLAN OF CARE DISCUSSED, PATIENT VERBALIZED UNDERSTANDING, CALL LIGHT WITHIN REACH, SAFETY MEASURE ENSURED, WILL CONTINUE TO MONITOR.
[2017-05-20] MEDS: CALCIUM CARB/VIT-D 500 MG/200 IU 1 TAB PO SCH (21:00)
[2017-05-20] MEDS: SIMVASTATIN 10 MG TAB PO SCH (21:01)
--- NOTE | 2017-05-20 21:15 | NUR ---
DUE MEDICATION GIVEN, PATIENT TOLERATED WELL. NO S/S OF DISTRESS NOTED, RESPIRATION EVEN AND UNLABORED, PATIENT IS EATING DINNER AT THIS TIME, CALL LIGHT WITHIN REACH, SAFETY MEASURE ENSURED, WILL CONTINUE TO MONITOR. Addendum: 05/20/17 at 2139 by Stacy Kohler RN WRONG PATIENT, PATIENT IS NOT EATING DINNER AT THIS TIME, HE IS RESTING IN BED AT THIS TIME
--- NOTE | 2017-05-20 22:30 | NUR ---
PATIENT CALLED AND STATED," I AM WET." ASSISTED TRAINS SERVICE CONDUCTOR CLEANED THE PATIENT AND CHANGED THE GOWN, CALL LIGHT WITHIN REACH, SAFETY MEASURE ENSURED, WILL CONTINUE TO MONITOR.
--- NOTE | 2017-05-21 00:05 | NUR ---
NOTED PATIENT VOIDED X1, CHANGED THE SHEET AND CLEANED THE PATIENT WITH THE PUBLIC RELATIONS COORDINATOR, DUE MEDICATION GIVEN, PATIENT TOLERATED WELL, CALL LIGHT WITHIN REACH, SAFETY MEASURE ENSURED, WILL CONTINUE TO MONITOR.
--- NOTE | 2017-05-21 00:45 | NUR ---
PATIENT VOIDED X1, CHANGED THE SHEET AND CLEANED THE PATIENT WITH THE FOOD SERVICE KITCHEN SUPERVISOR, NO S/S OF DISTRESS NOTED, CALL LIGHT WITHIN REACH, SAFETY MEASURE ENSURED, WILL CONTINUE TO MONITOR.
[2017-05-21 04:00] VITALS: BP 125/68
[2017-05-21] MEDS: CLINDAMYCIN 600 MG in DEXTROSE 5% 50 ML IV SCH ×5 (05:14→23:33)
--- NOTE | 2017-05-21 05:19 | NUR ---
DUE CLEOCIN STARTED, PATIENT TOLERATED WELL, NO S/S OF DISTRESS NOTED, RESPIRATION EVEN AND UNLABORED, CALL LIGHT WITHIN REACH, SAFETY MEASURE ENSURED, WILL CONTINUE TO MONITOR.
--- NOTE | 2017-05-21 07:02 | NUR ---
PATIENT CALLED AND NOTED HE VOIDED, CLEANED THE PATIENT WITH THE SUPERINTENDENT WATER AND SEWER SYSTEMS, NO S/S OF DISTRESS NOTED, CALL LIGHT WITHIN REACH, SAFETY MEASURE ENSURED, WILL CONTINUE TO MONITOR.
--- NOTE | 2017-05-21 07:15 | NUR ---
ENDORSED PLAN OF CARE TO DAY SHIFT RN, PATIENT IS SLEEPING, PATIENT IS IN STABLE CONDITION, RESPIRATION EVEN AND UNLABORED.
--- NOTE | 2017-05-21 07:16 | NUR ---
RECEIVED REPORT FROM THE CRANE HELPER NURSE AT BEDSIDE FOR CONTINUITY OF CARE. PT IS SLEEPING. UPDATED THE BOARD. PER CRANE HELPER NURSE, PT IS CONFUSED. KEEPS PRESSING THE CALL LIGHT TO BE CHANGED BC HE IS WET. HE IS BEDREST. SKIN IS INTACT. HE HAS A R FA 22G NS INFUSING AT 75ML. HIS BAG IS PRETTY FULL. TODAY'S LAB IS UNREMARKABLE. PER CRANE HELPER, NEED TO CRUSH MEDS, IN APPLE SAUCE. WILL CONTINUE TO MONITOR PT.
[2017-05-21 07:19] LABS: BASOPHILS # (AUTO) 0.2 K/uL (0.00-0.22); BASOPHILS % (AUTO) 4.2 % (0.0-2.0); EOSINOPHILS # (AUTO) 0.1 K/uL (0-0.4); EOSINOPHILS % (AUTO) 2.7 % (0.0-4.0); HEMATOCRIT 35.3 % (36-52); MEAN CORPUSCULAR HEMOGLOBIN 31 pg (27-31); MEAN CORPUSCULAR HGB CONC 34 g/dL (33-37); MEAN CORPUSCULAR VOLUME 92 fL (80-94); MONOCYTES # (AUTO) 0.6 K/uL (0.8-1.0); MONOCYTES % (AUTO) 11.9 % (1.7-9.3); NEUTROPHILS # (AUTO) 3.2 K/uL (1.8-7.7); NEUTROPHILS % (AUTO) 62.2 % (42.2-75.2); PLATELET COUNT (AUTO) 328 K/uL (140-450); RED BLOOD CELL COUNT(AUTO) 3.83 MIL/uL (4.20-6.10); RED CELL DISTRIBUTION WIDTH 13.4 % (11.6-13.7); WHITE BLOOD COUNT (AUTO) 5.1 K/uL (4.8-10.8)
[2017-05-21] MEDS: ALBUTEROL SULFATE/IPRATROPIU 3 ML SOL IH SCH ×3 (07:33→19:45)
[2017-05-21 07:53] LABS: ANION GAP 11.7 (8-16); CARBON DIOXIDE 29.1 mmol/L (21-32); CHLORIDE 109 mmol/L (98-107); CREATININE 1.2 mg/dL (0.7-1.3); GLUCOSE 98 mg/dL (74-106); POTASSIUM 3.8 mmol/L (3.5-5.1); SODIUM SERUM 146 mmol/L (136-145); UREA NITROGEN, BLOOD 16 mg/dL (7-18)
[2017-05-21 08:00] VITALS: BP 120/65
[2017-05-21] MEDS: NACL 0.9% 1,000 ML IV SCH ×2 (08:46→15:14)
[2017-05-21] MEDS: CLOPIDOGREL 75 MG TAB PO SCH (08:53)
[2017-05-21] MEDS: PRIMIDONE 50 MG TAB PO SCH (08:53)
[2017-05-21] MEDS: FAMOTIDINE 20 MG TAB PO SCH ×2 (08:53→20:32)
[2017-05-21] MEDS: GLYCOPYRROLATE 1 MG TAB PO SCH ×2 (08:54→20:32)
[2017-05-21] MEDS: LACTOBACILLUS RHAMNOSUS GG 1 EACH CAP PO SCH (08:54)
[2017-05-21] MEDS: CALCIUM CARBONATE 500 MG TAB PO SCH (08:54)
[2017-05-21] MEDS: MULTIVITAMIN/MINERALS 1 TAB PO SCH (08:54)
[2017-05-21] MEDS: LEVOFLOXACIN 750 MG/D5W PREMIX 150 ML IV SCH (08:55)
[2017-05-21] MEDS: MEMANTINE 10 MG TAB PO SCH (08:55)
[2017-05-21] MEDS: CYCLOBENZAPRINE 10 MG TAB PO SCH ×3 (08:55→16:23)
[2017-05-21] MEDS: DOCUSATE SODIUM 100 MG GELCAP PO SCH ×2 (08:55→20:32)
--- NOTE | 2017-05-21 09:04 | NUR ---
ADMINISTERED MORNING MEDS. CRUSHED AND IN APPLE SAUCE. PT TOLERATED WELL. WILL CONTINUE TO MONITOR PT.
[2017-05-21 09:41] LABS: MAGNESIUM 1.9 mg/dL (1.8-2.4)
[2017-05-21 10:03] LABS: PHOSPHORUS 3.8 mg/dL (2.5-4.9)
--- NOTE | 2017-05-21 11:27 | NUR ---
PT CALLS EVERY HOUR, HE SAYS HE'S WET. THE FIELD HOCKEY AND LACROSSE COACH HAS CHANGED HIM 3 X ALREADY. CALLED AGAIN. FIELD HOCKEY AND LACROSSE COACH THERE TO CHANGE HIM. PT SAYS HE IS UNABLE TO USE A URINAL. WE WILL CONTINUE TO CHANGE HIM.
[2017-05-21 12:00] VITALS: BP 109/62
--- NOTE | 2017-05-21 12:33 | NUR ---
ADMINISTERED AFTERNOON MEDS. PT TOLERATED WELL. PT C/O BEING WET. CHANGED PT. PT TOLERATED WELL. LUNCH TRAYS ARE HERE. PT WILL SIT UP AND EAT. WILL CONTINUE TO MONITOR PT.
--- NOTE | 2017-05-21 14:42 | NUR ---
PT RESTING COMFORTABLY. NO SIGNS OF DISTRESS. NO COMPLAINTS. WILL CONTINUE TO MONITOR PT.
--- NOTE | 2017-05-21 15:55 | NUR ---
PT RESTING COMFORTABLY. NO SIGNS OF DISTRESS. WILL CONTINUE TO MONITOR PT.
[2017-05-21 16:00] VITALS: BP 113/64
--- NOTE | 2017-05-21 17:25 | NUR ---
ADMINISTERED LAST ABX ON THIS SHIFT. PT TOLERATING WELL. CLAIMS HE IS WET. NOTIFIED ROAD MACHINE RUNNER TO CHANGE PT.
--- NOTE | 2017-05-21 19:19 | NUR ---
ENDORSED PT TO THE PAINT DEPARTMENT SUPERVISOR NURSE AT BEDSIDE FOR CONTINUITY OF CARE. PT IN STABLE CONDITION.
--- NOTE | 2017-05-21 19:21 | NUR ---
RECEIVED REPORT FROM DAY SHIFT RN, PATIENT RESTING IN BED, AWAKE ALERT ORIENTED X2, NO S/S OF DISTRESS NOTED, RESPIRATION EVEN AND UNLABORED, IV PATENT AND INTACT, INFUSING NS AT 75ML/HR, CALL LIGHT WITHIN REACH, SAFETY MEASURE ENSURED, WILL CONTINUE TO MONITOR.
[2017-05-21 19:46] VITALS: BP 131/72
[2017-05-21] MEDS: CALCIUM CARB/VIT-D 500 MG/200 IU 1 TAB PO SCH (20:32)
[2017-05-21] MEDS: SIMVASTATIN 10 MG TAB PO SCH (20:33)
--- NOTE | 2017-05-21 21:03 | NUR ---
DUE MEDICATION GIVEN, PATIENT TOLERATED WELL, NO S/S OF DISTRESS NOTED, RESPIRATION EVEN AND UNLABORED, CALL LIGHT WITHIN REACH, SAFETY MEASURE ENSURED, WILL CONTINUE TO MONITOR.
--- NOTE | 2017-05-21 21:55 | NUR ---
VOIDED IN BED, ASSISTED [employer] OPERATIONS CHANGED THE SHEET AND CLEANED THE PATIENT. REPOSITIONED PATIENT WITH THE [employer] OPERATIONS, CALL LIGHT WITHIN REACH, SAFETY MEASURE ENSURED, WILL CONTINUE TO MONITOR.
--- NOTE | 2017-05-21 23:46 | NUR ---
PATIENT WAS SLEEPING, DUE CLEOCIN STARTED, NO S/S OF DISTRESS NOTED, RESPIRATION EVEN AND UNLABORED, PATIENT VOIDED X1, CHANGED THE SHEET AND CLEANED THE PATIENT, REPOSITIONED THE PATIENT WITH THE SCADA OPERATOR, CALL LIGHT WITHIN REACH, SAFETY MEASURE ENSURED, WILL CONTINUE TO MONITOR.
[2017-05-22] VITALS: BP 110/62
--- NOTE | 2017-05-22 00:35 | NUR ---
NO COUGHING NOTED, PATIENT IS SLEEPING, NO SPUTUM COLLECTED YET.
--- NOTE | 2017-05-22 02:11 | NUR ---
VOIDED IN BED, ASSISTED RESEARCH METHODOLOGIST CHANGED THE SHEET AND CLEANED THE PATIENT. REPOSITIONED PATIENT WITH THE RESEARCH METHODOLOGIST, CALL LIGHT WITHIN REACH, HEAD OF BED ELEVATED, SAFETY MEASURE ENSURED, WILL CONTINUE TO MONITOR.
[2017-05-22 04:00] VITALS: BP 130/71
--- NOTE | 2017-05-22 04:05 | NUR ---
VITAL SIGNS STABLE, NO S/S OF DISTRESS NOTED, RESPIRATION EVEN AND UNLABORED, CALL LIGHT WITHIN REACH, SAFETY MEASURE ENSURED, WILL CONTINUE TO MONITOR.
[2017-05-22] MEDS: CLINDAMYCIN 600 MG in DEXTROSE 5% 50 ML IV SCH ×3 (05:31→17:01)
--- NOTE | 2017-05-22 05:45 | NUR ---
DUE CLEOCIN STARTED, PATIENT TOLERATED WELL, NO S/S OF DISTRESS NOTED, RESPIRATION EVEN AND UNLABORED, CALL LIGHT WITHIN REACH, SAFETY MEASURE ENSURED, WILL CONTINUE TO MONITOR.
[2017-05-22] MEDS: ALBUTEROL SULFATE/IPRATROPIU 3 ML SOL IH SCH ×3 (07:00→19:42)
--- NOTE | 2017-05-22 07:21 | NUR ---
ENDORSED PLAN OF CARE TO DAY SHIFT RN, PATIENT RESTING IN BED, NO S/S OF DISTRESS, RESPIRATION EVEN AND UNLABORED, PATIENT IN STABLE CONDITION.
--- NOTE | 2017-05-22 07:30 | NUR ---
RECEIVED REPORT FROM COMMERCIAL REAL ESTATE SALES MANAGER RN, PATIENT SLEEPING BUT EASILY AROUSED, AWAKE ALERT ORIENTED X2, NO S/S OF DISTRESS NOTED ON ROOM AIR, RESPIRATION EVEN AND UNLABORED, IV PATENT AND INTACT, INFUSING NS AT 75ML/HR, CALL LIGHT WITHIN REACH, SAFETY MEASURE ENSURED, WILL CONTINUE TO MONITOR.
[2017-05-22 07:32] LABS: BASOPHILS # (AUTO) 0.1 K/uL (0.00-0.22); BASOPHILS % (AUTO) 2.4 % (0.0-2.0); EOSINOPHILS # (AUTO) 0.2 K/uL (0-0.4); EOSINOPHILS % (AUTO) 3.6 % (0.0-4.0); HEMATOCRIT 34.8 % (36-52); HEMOGLOBIN 11.9 g/dL (12.0-18.0); LYMPHOCYTES # (AUTO) 0.9 K/uL (2.0-11.5); LYMPHOCYTES % (AUTO) 15.8 % (20.5-51.1); MEAN CORPUSCULAR HEMOGLOBIN 32 pg (27-31); MEAN CORPUSCULAR HGB CONC 34 g/dL (33-37); MEAN CORPUSCULAR VOLUME 93 fL (80-94); MONOCYTES # (AUTO) 0.5 K/uL (0.8-1.0); MONOCYTES % (AUTO) 10.1 % (1.7-9.3); NEUTROPHILS # (AUTO) 3.7 K/uL (1.8-7.7); NEUTROPHILS % (AUTO) 68.1 % (42.2-75.2); PLATELET COUNT (AUTO) 332 K/uL (140-450); RED BLOOD CELL COUNT(AUTO) 3.75 MIL/uL (4.20-6.10); RED CELL DISTRIBUTION WIDTH 13.2 % (11.6-13.7); WHITE BLOOD COUNT (AUTO) 5.4 K/uL (4.8-10.8)
[2017-05-22 08:00] VITALS: BP 106/61
[2017-05-22 08:52] LABS: CARBON DIOXIDE 30.2 mmol/L (21-32); CHLORIDE 107 mmol/L (98-107); CREATININE 1.2 mg/dL (0.7-1.3); GLUCOSE 85 mg/dL (74-106); POTASSIUM 4.2 mmol/L (3.5-5.1); SODIUM SERUM 142 mmol/L (136-145); UREA NITROGEN, BLOOD 18 mg/dL (7-18)
[2017-05-22 08:53] LABS: MAGNESIUM 1.8 mg/dL (1.8-2.4); PHOSPHORUS 3.9 mg/dL (2.5-4.9)
[2017-05-22] MEDS: CLOPIDOGREL 75 MG TAB PO SCH (09:21)
[2017-05-22] MEDS: CYCLOBENZAPRINE 10 MG TAB PO SCH ×3 (09:21→16:55)
[2017-05-22] MEDS: MEMANTINE 10 MG TAB PO SCH (09:21)
[2017-05-22] MEDS: CALCIUM CARBONATE 500 MG TAB PO SCH (09:21)
[2017-05-22] MEDS: DOCUSATE SODIUM 100 MG GELCAP PO SCH ×2 (09:22→20:25)
[2017-05-22] MEDS: MULTIVITAMIN/MINERALS 1 TAB PO SCH (09:22)
[2017-05-22] MEDS: PRIMIDONE 50 MG TAB PO SCH (09:22)
[2017-05-22] MEDS: FAMOTIDINE 20 MG TAB PO SCH ×2 (09:22→20:14)
[2017-05-22] MEDS: LACTOBACILLUS RHAMNOSUS GG 1 EACH CAP PO SCH (09:22)
[2017-05-22] MEDS: GLYCOPYRROLATE 1 MG TAB PO SCH ×2 (09:23→20:14)
--- NOTE | 2017-05-22 09:41 | NUR ---
RECEIVED REPORT FROM DAY NURSE, PT IN STABLE CONDITION RESTING COMFORTABLY IN BED. NO S/S OF DISTRESS NOTED. PT IS AAOX3, ON ROOM AIR. SKIN IS INTACT, IV NOTED ON RT FA 22G, PATENT AND INTACT, INFUSING WELL. SKIN IS WARM AND DRY TO TOUCH, COLOR WNL. FAMILY MEMBERS ARE AT THE BEDSIDE AT THIS TIME. BEDPAN PROVIDED FOR PT PER REQUEST. INITIAL ASSESSMENT IS COMPLETE. PLAN OF CARE DISCUSSED WITH PT AND FAMILY MEMBERS AT THE BEDSIDE, VERBALIZED UNDERSTANDING. ALL SAFETY PRECAUTIONS MET, BOARD UPDATED, INTRODUCED SELF, CALL LIGHT WITHIN REACH, ALL SAFETY PRECAUTIONS MET, WILL CONTINUE TO MONITOR Addendum: 05/22/17 at 1951 by Dagmar Dennis RN INCORRECT TIME: 1940 IS CORRECT TIME
--- NOTE | 2017-05-22 10:20 | NUR ---
PT HAS BEEN EVALUATED BY PT. NOT STEADY TO STAND UP. EXERCISE DONE. PHYSICAL THERAPIST WILL REEVALUATE PT ON WEDNESDAY.
[2017-05-22] MEDS: NACL 0.9% 1,000 ML IV SCH (11:26)
[2017-05-22 12:00] VITALS: BP 102/53
--- NOTE | 2017-05-22 14:30 | NUR ---
PT USED BEDPAN, URINATED AND NO BM. DIANA AREA CLEANED AND DRIED.
[2017-05-22 16:00] VITALS: BP 127/69
--- NOTE | 2017-05-22 19:40 | NUR ---
ENDORSED PT IN STABLE CONDITION TO DAY SHIFT RN FOR CONTINUITY OF CARE.
--- NOTE | 2017-05-22 19:41 | NUR ---
RECEIVED REPORT FROM DAY NURSE, PT IN STABLE CONDITION RESTING COMFORTABLY IN BED. NO S/S OF DISTRESS NOTED. PT IS AAOX3, ON ROOM AIR. SKIN IS INTACT, IV NOTED ON RT FA 22G, PATENT AND INTACT, INFUSING WELL. SKIN IS WARM AND DRY TO TOUCH, COLOR WNL. FAMILY MEMBERS ARE AT THE BEDSIDE AT THIS TIME. BEDPAN PROVIDED FOR PT PER REQUEST. INITIAL ASSESSMENT IS COMPLETE. PLAN OF CARE DISCUSSED WITH PT AND FAMILY MEMBERS AT THE BEDSIDE, VERBALIZED UNDERSTANDING. ALL SAFETY PRECAUTIONS MET, BOARD UPDATED, INTRODUCED SELF, CALL LIGHT WITHIN REACH, ALL SAFETY PRECAUTIONS MET, WILL CONTINUE TO MONITOR
[2017-05-22 20:00] VITALS: BP 106/66
[2017-05-22] MEDS: CALCIUM CARB/VIT-D 500 MG/200 IU 1 TAB PO SCH (20:14)
[2017-05-22] MEDS: SIMVASTATIN 10 MG TAB PO SCH (20:14)
--- NOTE | 2017-05-22 20:23 | NUR ---
DUE MEDICATIONS GIVEN EXCEPT COLACE PER REQUEST OF THE DAUGHTER. DAUGHTER STATES, "MY FATHER HAS HAD DIARRHEA AND I DO NOT WANT HIM TO HAVE THAT." PT TOLERATED MEDICATIONS WELL, MEDICATIONS GIVEN WITH APPLE SAUCE, PT SWALLOWED WELL WITH NO S/S OF DIFFICULTY OR DISTRESS. PT REPOSITIONED FOR COMFORT, PILLOWS PLACED UNDERNEATH THE LEGS. ALL SAFETY PRECAUTIONS MET, WILL CONTINUE TO MONITOR
[2017-05-23] VITALS: BP 120/68
[2017-05-23] MEDS: CLINDAMYCIN 600 MG in DEXTROSE 5% 50 ML IV SCH ×4 (00:46→18:40)
[2017-05-23] MEDS: NACL 0.9% 1,000 ML IV SCH ×2 (01:31→19:07)
[2017-05-23 04:00] VITALS: BP 110/62
[2017-05-23] MEDS: ALBUTEROL SULFATE/IPRATROPIU 3 ML SOL IH SCH ×3 (07:09→19:00)
[2017-05-23 07:26] LABS: ANION GAP 8.7 (8-16); CARBON DIOXIDE 29.7 mmol/L (21-32); CHLORIDE 104 mmol/L (98-107); GLUCOSE 83 mg/dL (74-106); POTASSIUM 4.4 mmol/L (3.5-5.1); SODIUM SERUM 138 mmol/L (136-145)
[2017-05-23 07:30] LABS: BASOPHILS # (AUTO) 0.1 K/uL (0.00-0.22); BASOPHILS % (AUTO) 1.1 % (0.0-2.0); EOSINOPHILS # (AUTO) 0.3 K/uL (0-0.4); EOSINOPHILS % (AUTO) 4.9 % (0.0-4.0); HEMATOCRIT 35.2 % (36-52); HEMOGLOBIN 11.8 g/dL (12.0-18.0); LYMPHOCYTES # (AUTO) 0.9 K/uL (2.0-11.5); LYMPHOCYTES % (AUTO) 13.9 % (20.5-51.1); MEAN CORPUSCULAR HEMOGLOBIN 32 pg (27-31); MEAN CORPUSCULAR HGB CONC 33 g/dL (33-37); MEAN CORPUSCULAR VOLUME 94 fL (80-94); MONOCYTES # (AUTO) 0.5 K/uL (0.8-1.0); NEUTROPHILS # (AUTO) 4.4 K/uL (1.8-7.7); NEUTROPHILS % (AUTO) 72.1 % (42.2-75.2); PLATELET COUNT (AUTO) 320 K/uL (140-450); RED BLOOD CELL COUNT(AUTO) 3.73 MIL/uL (4.20-6.10); RED CELL DISTRIBUTION WIDTH 13.6 % (11.6-13.7); WHITE BLOOD COUNT (AUTO) 6.3 K/uL (4.8-10.8)
--- NOTE | 2017-05-23 07:30 | NUR ---
RECEIVED REPORT FROM HIMS MANAGER RN, PATIENT SLEEPING BUT EASILY AROUSED, AWAKE ALERT ORIENTED X3, BUT FORGETFUL, NO S/S OF DISTRESS NOTED ON ROOM AIR, RESPIRATION EVEN AND UNLABORED, IV PATENT AND INTACT, INFUSING NS AT 75ML/HR, CALL LIGHT WITHIN REACH, SAFETY MEASURE ENSURED, WILL CONTINUE TO MONITOR.
--- NOTE | 2017-05-23 07:35 | NUR ---
GAVE REPORT TO DAY NURSE FOR CONTINUITY OF CARE, PT IN STABLE CONDITION. NO S/S OF DISTRESS NOTED. IV PATENT AND INTACT
[2017-05-23 08:00] VITALS: BP 132/83
[2017-05-23 08:16] LABS: UREA NITROGEN, BLOOD 19 mg/dL (7-18)
[2017-05-23 08:35] LABS: CREATININE 1.3 mg/dL (0.7-1.3)
[2017-05-23] MEDS: DOCUSATE SODIUM 100 MG GELCAP PO SCH ×2 (08:36→20:23)
[2017-05-23] MEDS: CYCLOBENZAPRINE 10 MG TAB PO SCH ×3 (08:36→17:29)
[2017-05-23] MEDS: MEMANTINE 10 MG TAB PO SCH (08:36)
[2017-05-23] MEDS: CLOPIDOGREL 75 MG TAB PO SCH (08:37)
[2017-05-23] MEDS: GLYCOPYRROLATE 1 MG TAB PO SCH ×2 (08:37→20:23)
[2017-05-23] MEDS: CALCIUM CARBONATE 500 MG TAB PO SCH (08:37)
[2017-05-23] MEDS: MULTIVITAMIN/MINERALS 1 TAB PO SCH (08:37)
[2017-05-23] MEDS: PRIMIDONE 50 MG TAB PO SCH (08:37)
[2017-05-23] MEDS: FAMOTIDINE 20 MG TAB PO SCH ×2 (08:38→20:22)
[2017-05-23] MEDS: LEVOFLOXACIN 750 MG/D5W PREMIX 150 ML IV SCH (08:38)
[2017-05-23] MEDS: LACTOBACILLUS RHAMNOSUS GG 1 EACH CAP PO SCH (08:38)
--- NOTE | 2017-05-23 09:45 | NUR ---
CHANGE IVF NS RATE TO 40ML/HR PER MD ORDER.
--- NOTE | 2017-05-23 11:00 | NUR ---
ACTIVE RANGE OF MOTION EXERCISE OF THE LEGS DONE IN THE BED.
[2017-05-23 12:00] VITALS: BP 136/66
[2017-05-23 16:00] VITALS: BP 117/69
--- NOTE | 2017-05-23 16:30 | NUR ---
ACTIVE RANGE OF MOTION EXERCISE DONE IN THE BED AND WHILE SITTING AT THE EDGE OF BED. PT HAS STRONG KICKS AND STRONG DORSAL FLEXION AND PLANTAR FLEXION. PHYSICAL THERAPIST WILL REEVALUATE PT TOMORROW.
--- NOTE | 2017-05-23 17:00 | NUR ---
PT'S DAUGHTER IS BEDSIDE. PLAN OF CARE UPDATED WITH PT'S DAUGHTER. DAUGHTER VERBALIZED UNDERSTANDING.
--- NOTE | 2017-05-23 17:30 | NUR ---
INCENTIVE SPIROMETER INSTRUCTION GIVEN TO PT AND PT'S DAUGHTER WHO VERBALIZED UNDERSTANDING. RETURN DEMONSTRATION DONE BY PT. PT NEEDS TEACHING REINFORCEMENT.
--- NOTE | 2017-05-23 19:21 | NUR ---
ENDORSED PT IN STABLE CONDITION TO MANAGER HOME HEALTHCARE RN FOR CONTINUITY OF CARE.
--- NOTE | 2017-05-23 19:22 | NUR ---
RECEIVED REPORT FROM DAY NURSE, PT IN STABLE CONDITION. NO S/S OF DISTRESS OF NOTED. PT IS AAOX3 ON ROOM AIR. SKIN IS INTACT, COLOR WNL, WARM AND DRY TO TOUCH. IV TO R FA 22G, PATENT AND INTACT. INITIAL ASSESSMENT COMPLETED. PLAN OF CARE DISCUSSED WITH PT AND DAUGHTER AT THE BEDSIDE, VERBALIZED UNDERSTANDING. ALL SAFETY PRECAUTIONS MET, CALL LIGHT WITHIN REACH, BOARD UPDATED, WILL CONTINUE TO MONITOR
[2017-05-23 20:00] VITALS: BP 101/65
[2017-05-23] MEDS: CALCIUM CARB/VIT-D 500 MG/200 IU 1 TAB PO SCH (20:23)
[2017-05-23] MEDS: SIMVASTATIN 10 MG TAB PO SCH (20:23)
[2017-05-24] VITALS: BP 101/61
[2017-05-24] MEDS: CLINDAMYCIN 600 MG in DEXTROSE 5% 50 ML IV SCH ×2 (00:30→06:21)
[2017-05-24 04:00] VITALS: BP 110/68
[2017-05-24] MEDS: ALBUTEROL SULFATE/IPRATROPIU 3 ML SOL IH SCH ×2 (07:00→14:10)
[2017-05-24 07:04] LABS: BASOPHILS # (AUTO) 0.1 K/uL (0.00-0.22); BASOPHILS % (AUTO) 1.3 % (0.0-2.0); EOSINOPHILS # (AUTO) 0.4 K/uL (0-0.4); EOSINOPHILS % (AUTO) 5.8 % (0.0-4.0); HEMATOCRIT 36.7 % (36-52); HEMOGLOBIN 12.4 g/dL (12.0-18.0); LYMPHOCYTES % (AUTO) 14.6 % (20.5-51.1); MEAN CORPUSCULAR HEMOGLOBIN 31 pg (27-31); MEAN CORPUSCULAR HGB CONC 34 g/dL (33-37); MEAN CORPUSCULAR VOLUME 92 fL (80-94); MONOCYTES # (AUTO) 0.5 K/uL (0.8-1.0); MONOCYTES % (AUTO) 7.7 % (1.7-9.3); NEUTROPHILS # (AUTO) 4.6 K/uL (1.8-7.7); NEUTROPHILS % (AUTO) 70.6 % (42.2-75.2); PLATELET COUNT (AUTO) 333 K/uL (140-450); RED BLOOD CELL COUNT(AUTO) 3.97 MIL/uL (4.20-6.10); RED CELL DISTRIBUTION WIDTH 13.1 % (11.6-13.7); WHITE BLOOD COUNT (AUTO) 6.6 K/uL (4.8-10.8)
--- NOTE | 2017-05-24 07:12 | NUR ---
RECEIVED PT IN BED. AWAKE. ALERT ORIENTEDX2. NO SOB NOTED. DENIES ANY PAIN OR DISCOMFORT AT THIS TIME. PT ON BEDREST. CONTINENT, REQUESTS BEDPAN FOR URINATION. SAFETY PRECAUTION IN PLACE. CALL LIGHT WITHIN REACH. Addendum: 05/24/17 at 0721 by Deirdre Bush RN PT AMBULATORY WITH ASSIST WITH THE USE OF TWO FRONT WHEEL WALKER.
--- NOTE | 2017-05-24 07:35 | NUR ---
ENDORSED TO LIAM DAVIS PT ON STABLE CONDITION.
--- NOTE | 2017-05-24 07:44 | NUR ---
REPORT GIVEN TO DAY NURSE FOR CONTINUITY OF CARE, PT IN STABLE CONDITION. NO S/S OF DISTRESS NOTED
[2017-05-24 07:58] LABS: PHOSPHORUS 3.6 mg/dL (2.5-4.9)
[2017-05-24 08:00] VITALS: BP 135/72
[2017-05-24 08:12] LABS: SODIUM SERUM 137 mmol/L (136-145)
[2017-05-24 08:13] LABS: ANION GAP 8.8 (8-16); CARBON DIOXIDE 31.1 mmol/L (21-32); CHLORIDE 102 mmol/L (98-107); CREATININE 1.3 mg/dL (0.7-1.3); GLUCOSE 87 mg/dL (74-106); POTASSIUM 4.9 mmol/L (3.5-5.1)
[2017-05-24 08:39] LABS: UREA NITROGEN, BLOOD 23 mg/dL (7-18)
[2017-05-24] MEDS: FAMOTIDINE 20 MG TAB PO SCH (08:50)
[2017-05-24] MEDS: LACTOBACILLUS RHAMNOSUS GG 1 EACH CAP PO SCH (08:50)
[2017-05-24] MEDS: CALCIUM CARBONATE 500 MG TAB PO SCH (08:50)
[2017-05-24] MEDS: GLYCOPYRROLATE 1 MG TAB PO SCH (08:51)
[2017-05-24] MEDS: DOCUSATE SODIUM 100 MG GELCAP PO SCH (08:51)
[2017-05-24] MEDS: MULTIVITAMIN/MINERALS 1 TAB PO SCH (08:51)
[2017-05-24] MEDS: PRIMIDONE 50 MG TAB PO SCH (08:51)
[2017-05-24] MEDS: MEMANTINE 10 MG TAB PO SCH (08:52)
[2017-05-24] MEDS: CYCLOBENZAPRINE 10 MG TAB PO SCH ×2 (08:52→13:04)
[2017-05-24] MEDS: CLOPIDOGREL 75 MG TAB PO SCH (08:52)
--- NOTE | 2017-05-24 09:35 | NUR ---
DR. MONTESINOS CAME, SEEN PT., AND REVIEWED CHART. NO ORDER RECEIVED.
[2017-05-24] MEDS ORDERED: CLIN300C2 PO (09:53)
[2017-05-24] MEDS ORDERED: ROBAC PO (09:53)
[2017-05-24] MEDS ORDERED: LACT10CA PO (09:53)
[2017-05-24] MEDS ORDERED: BENZ-196 PO (09:53)
[2017-05-24] MEDS ORDERED: LEVO750T2 PO (09:53)
[2017-05-24] MEDS ORDERED: IPRA3AMP IH ×2 (09:53)
--- NOTE | 2017-05-24 10:00 | NUR ---
PHYSICAL THERAPIST CAME FOR PT. EVAL AND TREATMENT.
--- NOTE | 2017-05-24 10:26 | NUR ---
CALLED SLAB INSPECTOR SUSIE AND INFORMED MD ORDER FOR PT. D/C TO SNF ([facility]).
[2017-05-24 12:00] VITALS: BP 114/68
--- NOTE | 2017-05-24 12:20 | NUR ---
CALLED [facility] AT AND SPOKE TO MINH DÍAZ AND GAVE REPORT REGARDING PT. TRANSFER.
--- NOTE | 2017-05-24 12:21 | NUR ---
CM NOTE PATIENT TO BE PICKED UP VIA GURNEY BY [facility], [address]. ETA 1400. LIAM STRICKLAND MADE AWARE.
--- NOTE | 2017-05-24 14:10 | NUR ---
PT IS LEAVING AMBULANCE HERE TO GET PT
--- NOTE | 2017-05-24 14:11 | NUR ---
PHYSICAL THERAPY CO-SIGN The Physical Therapy Progress Notes documented by Signal Timer have been reviewed. Reviewed/Co-Signed by: Dawn Mendoza DPT Documentation Done by: Chencho Cartwright PTA Patient fairly rui tx, slowly progressing towards goals, cont difficulty with OOB activity, cont with PT POC as rui/safe. Addendum: 05/24/17 at 1414 by Dawn Mendoza PT Amended: Links added.
--- NOTE | 2017-05-24 14:20 | NUR ---
D/C VIA [facility] WITH [facility]SP[facility]. AWAKE, ALERT, AND ORIENTED X3. IN STABLE CONDITION. INFORMED CHARGE NURSE PILI TORRES.
== END 2017-05-24 14:20 | disposition home or self-care (01) | DRG 177 ==
LOC: MED 15:17 → UNDOADMIN 18:39 → MTU 18:39
PROVIDERS: ADMIT Family Medicine Sports Medicine; ATTEND Family Medicine Sports Medicine
DX: J69.0 Pneumonitis due to inhalation of food and vomit (principal); N17.0 Acute kidney failure with tubular necrosis; G93.41 Metabolic encephalopathy; E87.0 Hyperosmolality and hypernatremia; E44.1 Mild protein-calorie malnutrition; E83.39 Other disorders of phosphorus metabolism; I07.1 Rheumatic tricuspid insufficiency; E83.51 Hypocalcemia; M94.0 Chondrocostal junction syndrome [Tietze]; K44.9 Diaphragmatic hernia without obstruction or gangrene; K21.9 Gastro-esophageal reflux disease without esophagitis; G20 Parkinson's disease; M62.50 Muscle wasting and atrophy, not elsewhere classified, unspecified site; D64.9 Anemia, unspecified; E87.8 Other disorders of electrolyte and fluid balance, not elsewhere classified; I11.9 Hypertensive heart disease without heart failure; J44.9 Chronic obstructive pulmonary disease, unspecified; F31.9 Bipolar disorder, unspecified; I35.1 Nonrheumatic aortic (valve) insufficiency; M19.90 Unspecified osteoarthritis, unspecified site; I34.0 Nonrheumatic mitral (valve) insufficiency; I70.0 Atherosclerosis of aorta; F02.80 Dementia in other diseases classified elsewhere, unspecified severity, without behavioral disturbance, psychotic disturbance, mood disturbance, and anxiety; E78.5 Hyperlipidemia, unspecified; Z90.49 Acquired absence of other specified parts of digestive tract; Z86.73 Personal history of transient ischemic attack (TIA), and cerebral infarction without residual deficits; Z79.899 Other long term (current) drug therapy
CPT/HCPCS: 36415; 71045; 80048; 80053; 81003; 83036; 83605; 83690; 83735; 83880; 84100; 84439; 84443; 84484; 85025; 85610; 85730; 87040; 87081; 93005; 94640; 96361; 96365; 97110; 97140; 97530; 99285; J1956; J3490; J7030; J7060; J7620; Q0092